=== PATIENT | female | born 1970 | race Caucasian/White ===

== ENCOUNTER → 2017-03-06 | Outpatient (CLI) | payer OTHER ==
[~2017-03-06] MED LIST: AMIT-104 PO; DIP25 PO; DOXY100T3 PO; EPIN0.3P15 IM; IBU800 PO; IRON1CAP52 PO; LORA10CA3 PO; PANT40TA63 PO; PER PO; ZINC1CAP PO
--- NOTE | 2017-03-08 09:32 | RADIOLOGY IMAGING REPORT ---
FACILITY: [facility] PATIENT NAME: KASEY PEDROZA : [id number] MR: [id number] V: [id number] EXAM DATE: [id number] ORDERING PHYSICIAN: MARY DUKES TECHNOLOGIST: Lorie Henderson PROCEDURE:BILATERAL DIGITAL SCREENING MAMMOGRAM WITH CAD AND 3D BREAST TOMOSYNTHESIS. COMPARISON:02/26/16 and priors back to 11/01/10. INDICATIONS:SCREENING FINDINGS: Breast parenchyma is heterogeneously dense. There are no mammographic findings concerning for malignancy. No significant interval change. DIAGNOSTIC CATEGORY 1--NEGATIVE. RECOMMENDATIONS: ROUTINE MAMMOGRAM AND CLINICAL EVALUATION. IMPRESSION: Bi-RADS 1: Negative. RECOMMENDATION: Followup screening mammogram in one year. Dictated by: Osvaldo Lr on 03/06/2017 at 14:44 Transcribed by: FE on 03/06/2017 at 23:25 Approved by: Sandy Ayala M.D. on 03/08/2017 at 8:55 [facility]
== END ==
LOC: MAMO 02:04
PROVIDERS: ATTEND Physician Assistant
DX: Z12.31 Encounter for screening mammogram for malignant neoplasm of breast (principal)
CPT/HCPCS: 77063; 77067